=== PATIENT | male | born 1970 ===

== ENCOUNTER → 2023-06-19 | Outpatient (CLI) | payer SELFPAY ==
[2023-06-19 15:01] LABS: BASOPHILS ABSOLUTE AUTO 0.05 K/mm3 (0.00-0.23); BASOPHILS PERCENT AUTO 1 % (0-2); EOSINOPHILS ABSOLUTE AUTO 0.11 K/mm3 (0.00-0.68); EOSINOPHILS PERCENT AUTO 2 % (0-6); IMMATURE GRAN ABSOLUTE AUTO 0.02 K/mm3 (0.00-0.10); IMMATURE GRAN PERCENT AUTO 0 % (0-1); LYMPHOCYTES ABSOLUTE AUTO 1.72 K/mm3 (0.84-5.20); LYMPHOCYTES PERCENT AUTO 25 % (21-46); MONOCYTES ABSOLUTE AUTO 0.64 K/mm3 (0.16-1.47); MONOCYTES PERCENT AUTO 9 % (4-13); Mean Corpuscular HGB 32.5 pg (26.0-34.0); Mean Corpuscular HGB Conc 34.9 g/dL (31.5-36.5); Mean Corpuscular Volume 93 fL (80-100); Mean Platelet Volume 10.1 fL (9.1-12.4); NEUTROPHILS ABSOLUTE AUTO 4.36 K/mm3 (1.96-9.15); NEUTROPHILS PERCENT AUTO 63 % (41-73); Platelet Count 233 K/mm3 (150-400); RDW Coefficient Variation 12.6 % (11.7-14.2); RDW Standard Deviation 43.4 fL (35.1-46.3); Red Blood Cell Count 4.62 M/mm3 (4.30-5.90)
[2023-06-19 15:43] LABS: Albumin, Blood 4.1 g/dL (3.4-5.0); Albumin/Globulin Ratio 1.1 (0.8-1.8); Bilirubin, Total 0.3 mg/dL (0.1-1.0); Bun/Creatinine Ratio 21.2 (12.0-20.0); Calcium, Blood 8.8 mg/dL (8.5-10.1); Creatinine, Blood 0.85 mg/dL (0.60-1.20); Globulin, Blood 3.9 g/dL (2.2-4.0); Thyroid Stimulating Hormone 1.58 uIU/mL (0.360-4.800)
== END ==
LOC: LAB SHORT 13:05 → LAB 13:05
PROVIDERS: Physician Assistant
DX: R22.1 Localized swelling, mass and lump, neck (principal); R53.83 Other fatigue
CPT/HCPCS: 80053; 84443; 85025

== ENCOUNTER → 2023-07-16 | Outpatient (CLI) | payer OTHER, BC ==
[2023-07-16 10:51] LABS: BASOPHILS ABSOLUTE AUTO 0.04 K/mm3 (0.00-0.23); BASOPHILS PERCENT AUTO 1 % (0-2); EOSINOPHILS ABSOLUTE AUTO 0.13 K/mm3 (0.00-0.68); EOSINOPHILS PERCENT AUTO 2 % (0-6); Hematocrit 44.7 % (37.0-53.0); Hemoglobin 15.4 g/dL (13.5-17.5); IMMATURE GRAN ABSOLUTE AUTO 0.02 K/mm3 (0.00-0.10); IMMATURE GRAN PERCENT AUTO 0 % (0-1); LYMPHOCYTES PERCENT AUTO 28 % (21-46); MONOCYTES ABSOLUTE AUTO 0.54 K/mm3 (0.16-1.47); MONOCYTES PERCENT AUTO 9 % (4-13); Mean Corpuscular HGB 32.2 pg (26.0-34.0); Mean Corpuscular HGB Conc 34.5 g/dL (31.5-36.5); Mean Corpuscular Volume 94 fL (80-100); Mean Platelet Volume 9.7 fL (9.1-12.4); NEUTROPHILS ABSOLUTE AUTO 3.55 K/mm3 (1.96-9.15); NEUTROPHILS PERCENT AUTO 59 % (41-73); Platelet Count 219 K/mm3 (150-400); RDW Coefficient Variation 12.5 % (11.7-14.2); RDW Standard Deviation 42.9 fL (35.1-46.3); Red Blood Cell Count 4.78 M/mm3 (4.30-5.90); White Blood Cell Count 5.98 K/mm3 (4.00-11.30)
[2023-07-16 11:11] LABS: Albumin, Blood 4.1 g/dL (3.4-5.0); Albumin/Globulin Ratio 1.1 (0.8-1.8); Bilirubin, Total 0.3 mg/dL (0.1-1.0); Bun/Creatinine Ratio 19.4 (12.0-20.0); Calcium, Blood 9.2 mg/dL (8.5-10.1); Creatinine, Blood 1.03 mg/dL (0.60-1.20); Free Thyroxine 0.81 ng/dL (0.70-1.60); Globulin, Blood 3.9 g/dL (2.2-4.0); Potassium, Blood 3.9 mmol/L (3.5-5.5); Thyroid Stimulating Hormone 1.911 uIU/mL (0.360-4.800)
== END | disposition home or self-care (01) ==
LOC: LAB SHORT 10:45 → LAB 10:45
PROVIDERS: Chiropractor
DX: E86.0 Dehydration (principal); R59.0 Localized enlarged lymph nodes; R53.83 Other fatigue
CPT/HCPCS: 80053; 84439; 84443; 85025; 85651; 86140

== ENCOUNTER 2023-10-16 09:42 | Day surgery (SDC) | payer OTHER, BC ==
[~2023-10-16] VITALS: Ht 173 cm; Wt 75.3 kg
[~2023-10-16 09:42] MED LIST: Lactated Ringer's 1,000 ML IV SCH
[2023-10-16 10:49] VITALS: BP 135/85
[2023-10-16] MEDS ORDERED: Phenergan25 M1 PO (10:52)
[2023-10-16] MEDS ORDERED: ONDA4ODT MM (10:52)
[2023-10-16] MEDS ORDERED: OMEP20ER PO (10:54)
[2023-10-16] MEDS ORDERED: ZYRTEC10 M2 PO (10:54)
[2023-10-16] MEDS ORDERED: PSEU120ER PO (10:54)
[2023-10-16] MEDS ORDERED: CeFAZolin Sodium 2,000 MG in NS 100 ML IV SCH (11:15)
--- NOTE | 2023-10-16 11:28 | NUR ---
History, Chart, Medications and Allergies reviewed before start of procedure. Patient up to Ambulate independently. Gait steady. Pre-Op teaching done. Pt verbalizes understanding. Patient confirms NPO status and agrees with scheduled surgery. Patient reports completing Chlorhexadine shower X2 prior to admission to hospital. Surgical site prepped with 2% Chlorhexidine cloth wipe. Patient States Post-Procedure ride home has been arranged.
--- NOTE | 2023-10-16 11:38 | NUR ---
10/16/23 [address] HOWE'S ANESTHESIA RECORD FOR SEDATION
[2023-10-16 11:49] VITALS: BP 115/78
--- NOTE | 2023-10-16 11:49 | NUR ---
PT TO DAY SURGERY STEP DOWN FROM PEG TUBE PLACEMENT. BEDSIDE REPORT RECEIVED. PT IS AWAKE, ALERT AND ORIENTED; ABLE TO MOVE SELF IN BED. VSS. PT HAS NO COMPLAINTS. PEG TUBE HAS GAUZE COVERING AND IT IS C/D/I.
--- NOTE | 2023-10-16 12:03 | NUR ---
PT AT BEDSIDE. PT IN GAUZE REMAINS C/D/I. Discharge instructions reviewed with patient. Patient verbalizes understanding. Copy given to patient to take home. Patient States Post-Procedure ride home has been arranged.
[2023-10-16 12:15] VITALS: BP 133/97
--- NOTE | 2023-10-16 12:17 | NUR ---
PT C/O LOWER ABD SHARP PAINS THAT IS "MOVING". DR BONILLA AT BEDSIDE ASSESSING PEG TUBE, FEELING PT ABD. PT DECLINES ANY MORE PAIN WITH THIS. FEELS LIKE GAS PAIN. WILL CONTINUE TO MONITOR TO SEE HOW PT FEELS.
--- NOTE | 2023-10-16 12:25 | NUR ---
PT TOLERATING PO FLUIDS WELL, STATES HE FEELS MUCH BETTER. NOT NAUSEOUS AND PAIN HAS GONE AWAY. PT PASSING GAS. DESIRES TO GO HOME.
[2023-10-16 12:31] VITALS: BP 145/81
--- NOTE | 2023-10-16 12:40 | NUR ---
Patient up to Ambulate independently. Gait steady. Discharged via wheelchair to private car for ride home.
== END 2023-10-16 12:49 | disposition home or self-care (01) ==
LOC: ORSCMMR 09:42 → ORD 11:00 → ORSCMMR 11:00
PROVIDERS: Surgery
PROC: 0DH63UZ Insertion of Feeding Device into Stomach, Percutaneous Approach (ICD-10-PCS; principal; 2023-10-16 11:00)
DX: C09.0 Malignant neoplasm of tonsillar fossa (principal); R13.11 Dysphagia, oral phase; Z79.899 Other long term (current) drug therapy
CPT/HCPCS: C1769; J0690; J7120

== ENCOUNTER 2024-04-24 10:37 | Emergency (ER) | payer BC ==
[~2024-04-24] VITALS: Ht 167.6 cm; Wt 68.0 kg
[~2024-04-24 10:37] MED LIST changes: +Acetaminophen325 M1 PO; +Ativan1 MG; +CITALOPRAM HBR10 MG PT; +Flonase 0.05% N16 GM; +GUAI600T33 PO; +LEVFLO500 PO; +LORA10ER PO; -Lactated Ringer's 1,000 ML IV SCH; +MAGNESIUM OXID500 MG PO; +METO10 PT; +OMEP20ER PO; +ONDA4ODT MM; +ONELAX DOC50 MG/5 ML PT; +OXYC10ER PO; +PSEU120ER PO; +Phenergan25 M1 PO; +TRANSDERM-SCOP1 EA13 TD; +ZYRTEC10 M2 PO
[2024-04-24 12:44] LABS: BASOPHILS ABSOLUTE AUTO 0.02 K/mm3 (0.00-0.23); BASOPHILS PERCENT AUTO 1 % (0-2); EOSINOPHILS ABSOLUTE AUTO 0.03 K/mm3 (0.00-0.68); EOSINOPHILS PERCENT AUTO 1 % (0-6); Hematocrit 33.1 % (37.0-53.0); Hemoglobin 11.4 g/dL (13.5-17.5); IMMATURE GRAN ABSOLUTE AUTO 0.01 K/mm3 (0.00-0.10); IMMATURE GRAN PERCENT AUTO 0 % (0-1); LYMPHOCYTES ABSOLUTE AUTO 0.73 K/mm3 (0.84-5.20); LYMPHOCYTES PERCENT AUTO 17 % (21-46); MONOCYTES ABSOLUTE AUTO 0.47 K/mm3 (0.16-1.47); MONOCYTES PERCENT AUTO 11 % (4-13); Mean Corpuscular HGB 34.3 pg (26.0-34.0); Mean Corpuscular HGB Conc 34.4 g/dL (31.5-36.5); Mean Corpuscular Volume 100 fL (80-100); Mean Platelet Volume 10.5 fL (9.1-12.4); NEUTROPHILS ABSOLUTE AUTO 2.98 K/mm3 (1.96-9.15); NEUTROPHILS PERCENT AUTO 70 % (41-73); Platelet Count 144 K/mm3 (150-400); RDW Coefficient Variation 13.2 % (11.7-14.2); RDW Standard Deviation 47.8 fL (35.1-46.3); Red Blood Cell Count 3.32 M/mm3 (4.30-5.90); White Blood Cell Count 4.24 K/mm3 (4.00-11.30)
[2024-04-24 12:50] LABS: Albumin, Blood 4.3 g/dL (3.4-5.0); Albumin/Globulin Ratio 1.2 (0.8-1.8); Bilirubin, Total 0.5 mg/dL (0.1-1.0); Bun/Creatinine Ratio 16.9 (12.0-20.0); Calcium, Blood 10.1 mg/dL (8.5-10.1); Creatinine, Blood 1.42 mg/dL (0.60-1.20); Globulin, Blood 3.7 g/dL (2.2-4.0); Potassium, Blood 3.7 mmol/L (3.5-5.5)
[2024-04-24] MEDS ORDERED: NS 1,000 ML IV SCH (14:20)
[2024-04-24] MEDS ORDERED: CEPH500 PO (17:24)
[2024-04-24] MEDS ORDERED: Cephalexin Monohydrate 500 MG Cap PO ONE (17:25)
[2024-04-24] MEDS ORDERED: DiphenhydrAMINE HCl 50 MG/ML 1ML Vial IV ONE (17:30)
[2024-04-24] MEDS ORDERED: EPIPEN0.3 MG/0.3 IM (17:31)
[2024-04-24] MEDS ORDERED: MethylPREDNISolone Sod Succ 40 MG VIAL IV ONE (17:35)
[2024-04-24] MEDS ORDERED: RX Prepack 6 Tabs Oxycodone 5mg UD ONE (18:25)
[2024-04-24] MEDS ORDERED: Percocet 10-321 EACH PO (18:27)
[2024-04-24 18:33] VITALS: BP 112/73
== END 2024-04-24 18:37 | disposition home or self-care (01) ==
LOC: ER 10:37
PROVIDERS: Physician Assistant
DX: L03.311 Cellulitis of abdominal wall (principal); Z79.899 Other long term (current) drug therapy
CPT/HCPCS: 74160; 80053; 83735; 85025; 96361; 96374; 96375; 99283-25; A9270; J1200; J2919; J7030; Q9967